=== PATIENT | female | born 2000 | race Caucasian/White ===

== ENCOUNTER 2021-01-17 10:12 | Emergency (ER) | payer OTHER, SELFPAY ==
[2021-01-17 10:21] VITALS: BP 125/75; PULSE 85; RESP 16; TEMP 36; O2SAT 100
--- NOTE | 2021-01-17 10:57 | ED.GENADULT ---
HPI - General Adult General Chief complaint: Upper Respiratory Infection Stated complaint: Sore Throat Source: patient Mode of arrival: ambulatory Limitations: no limitations History of Present Illness HPI narrative: Patient presents for evaluation of sore throat since yesterday. She indicates she sees some white spots in the back of her throat on the left side. She also noted some bilateral cervical lymphadenopathy, right greater than left. 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 No fever, chills, nausea, vomiting. She has some sinus congestion and occasional nonproductive cough. However she has underlying asthma. She is currently using albuterol which is likely . Last use was 3 to 4 days ago. She denies any wheezing, chest pain or shortness of breath. She tried using Chloraseptic spray with some improvement in her symptoms or after. She does vape. No additional complaints or concerns. Related Data Allergies Allergy/AdvReac Type Severity Reaction Status Date / Time No Known Allergies Allergy Unverified 01/17/21 10:45 Review of Systems Review of Systems: Narrative: CONSTITUTIONAL: Denies fever, chills, or sweats. EYES: Denies visual changes, redness, or discharge. ENT: Reports congestion, rhinorrhea, sore throat and bilateral otalgia CARDIOVASCULAR: Denies chest pain, palpitations, or edema. RESPIRATORY: Reports occasional nonproductive cough. Denies dyspnea. GASTROINTESTINAL: Denies abdominal pain, nausea, vomiting, or diarrhea. GENITOURINARY: Denies dysuria or hematuria. SKIN: Denies rash or itching. MUSCULOSKELETAL: Denies back pain, joint pain, or myalgia. NEUROLOGIC: Denies headache, numbness, dizziness, or weakness. PSYCHIATRIC: Denies anxiety or depression. [facility] Past Medical History Medical History (Updated 01/17/21 @ 11:17 by SUHAIL Rivera, GILDARDO) Asthma Surgical History Surgical History No pertinent past surgical history Family History Family History Other Family history unknown Social History Social History Tobacco type: e-cigarettes/vaping Substance use: never Additional living arrangements comments: lives with Gender identity (if verbalized by the patient): Female Sexual Orientation (if Verbalized by the Patient): Lesbian, Greenberg, or Homosexual Exam Narrative: Exam Narrative: GENERAL: Well-appearing, well-nourished, and in no acute distress. HEAD: Normocephalic, atraumatic. EYES: PERRLA and EOMI. ENT: Nares clear, no rhinorrhea or epistaxis. Mucous membranes moist. Oropharynx without tonsillar hypertrophy however there is white exudate noted over posterior pharynx on the left side. Bilateral TMs pearly guerrero nonbulging NECK: Supple. No adenopathy or masses. No carotid bruits or JVD CHEST: Clear to auscultation. No respiratory distress. No wheezes rales or rhonchi HEART: Regular rate and rhythm. No murmur heard. Normal peripheral pulses. ABDOMEN: Soft, nontender, nondistended, normal active bowel sounds. EXTREMITIES: Normal range of motion. No edema. SKIN: Warm, dry, no rash. NEURO: No focal deficits. Alert and oriented x3. PSYCH: Normal mood and affect. Course Course Emergency Course: This is a 20-year-old female who presents with complaints of sore throat and fatigue. Her strep was negative. Her mono was positive. Informed patient on method of transmission and medication she can take for symptom control. Also advised on potential for splenic enlargement and that she should avoid any type of contact sports. Advised follow-up outpatient for further evaluation and treatment return for worsening symptoms. Vital Signs Vital signs: Vital Signs Temperature 36.0 C L 01/17/21 10:21 Pulse Rate 85 01/17/21 10:21 Respiratory Rate 16 01/17/21 10:21 Blood Pressure
== END 2021-01-17 11:21 | disposition home or self-care (01) ==
PROVIDERS: Emergency Provider Nurse Practitioner
DX: B27.90 Infectious mononucleosis, unspecified without complication (principal); J45.909 Unspecified asthma, uncomplicated
CPT/HCPCS: 36416; 86308; 87081; 87880; 99213; G0463

== ENCOUNTER 2021-06-17 17:35 | Emergency (ER) | payer OTHER, SELFPAY ==
[2021-06-17 17:44] VITALS: BP 135/74; PULSE 84; RESP 16; TEMP 36.4; O2SAT 99
--- NOTE | 2021-06-17 18:22 | ED.URI ---
HPI - URI/Sore Throat General Chief Complaint: Upper Respiratory Infection Stated Complaint: SORE THROAT Time Seen by Provider: 06/17/21 18:03 Source: patient and RN notes reviewed Mode of arrival: ambulatory Limitations: no limitations History of Present Illness HPI Narrative: Patient presents today complaining of a 1 week history of sore throat and right lymph node swelling with congestion and mild cough. Denies fever. History of asthma. Patient had COVID-19 in February as well as mononucleosis soon following. Denies current pain in the throat, but does have tenderness when she touches her neck. She has been taking ibuprofen with some mild relief. Patient is also requesting a refill of her albuterol inhaler. MD elicited complaint: sore throat Related Data Allergies Allergy/AdvReac Type Severity Reaction Status Date / Time No Known Allergies Allergy Verified 06/17/21 18:24 Review of Systems Review of Systems: CONSTITUTIONAL: Denies body aches, fever, chills, or sweats. EYES: Denies visual changes, redness, or discharge. ENT: Denies rhinorrhea, or otalgia.+ Sore throat, lymph node swelling, congestion CARDIOVASCULAR: Denies chest pain, palpitations, or edema. RESPIRATORY: Denies dyspnea.+ Cough GASTROINTESTINAL: Denies abdominal pain, nausea, vomiting, or diarrhea. GENITOURINARY: Denies dysuria or hematuria. SKIN: Denies rash, itching, or wounds. MUSCULOSKELETAL: Denies back pain, joint pain, or myalgia. NEUROLOGIC: Denies headache, numbness, tingling, or weakness. PSYCH: Denies depression or anxiety. [facility] Past Medical History Medical History Asthma Surgical History Surgical History No pertinent past surgical history Family History Family History Other Family history unknown Social History Social History Tobacco type: e-cigarettes/vaping Substance use: never Additional living arrangements comments: lives with Gender identity (if verbalized by the patient): Female Sexual Orientation (if Verbalized by the Patient): Lesbian, Greenberg, or Homosexual Comments At time of signature, I have reviewed and agree with nursing past medical, surgical, social and family history unless otherwise noted. Please see nursing chart for further information. There is no relevant family history pertinent to the presenting complaint Exam Narrative: GENERAL: Well-appearing, well-nourished, and in no acute distress. HEAD: Normocephalic, atraumatic. EYES: EOMI. No redness or drainage. Conjunctivae normal. ENT: Mucous membranes pink and moist. Nares clear. No rhinorrhea. TMs normal bilaterally. Throat mildly erythematous. Tonsils 2+ with white exudate. Uvula midline. NECK: Normal AROM. Supple. Bilateral tender and swollen anterior cervical chain lymph nodes, right greater than left. CHEST: No respiratory distress. Clear to auscultation. HEART: Regular rate and rhythm. No murmur appreciated. Normal peripheral pulses. EXTREMITIES: Normal range of motion. No edema. SKIN: Warm, dry, no rash. Capillary refill normal. Normal skin turgor. NEURO: No focal deficits. Alert and oriented x3. Gait steady. PSYCH: Normal affect. No signs of depression or anxiety. Course Vital Signs Vital signs: Vital Signs Temperature 97.5 F L 06/17/21 17:44 Pulse Rate 84 06/17/21 17:44 Respiratory Rate 16 06/17/21 17:44 Blood Pressure 135/74 06/17/21 17:44 Pulse Oximetry 99 06/17/21 17:44 Temperature 97.5 F L 06/17/21 17:44 Pulse Rate 84 06/17/21 17:44 Respiratory Rate 16 06/17/21 17:44 Blood Pressure 135/74 06/17/21 17:44 Pulse Oximetry 99 06/17/21 17:44 Reviewed. Pt has been instructed to follow up with her PCP regarding her elevated blood pressure today
== END 2021-06-17 18:35 | disposition home or self-care (01) ==
PROVIDERS: Emergency Provider Nurse Practitioner
DX: L04.9 Acute lymphadenitis, unspecified (principal); J06.9 Acute upper respiratory infection, unspecified; J02.9 Acute pharyngitis, unspecified; F17.290 Nicotine dependence, other tobacco product, uncomplicated; J45.909 Unspecified asthma, uncomplicated; Z86.16 Personal history of COVID-19
CPT/HCPCS: 87081; 87880; 99213; G0463

== ENCOUNTER 2021-08-06 17:39 | Emergency (ER) | payer OTHER, BC, SELFPAY ==
--- NOTE | ~2021-08-06 | XR_ITS ---
XR humerus LT DATE: 08/06/2021 18:07 INDICATION: Fall. Left humerus distal pain TECHNIQUE: AP and lateral views COMPARISON: None FINDINGS: No fracture, dislocation, periosteal reaction or bone destruction of the left humerus is de tected. Normal alignment at the acromioclavicular, glenohumeral and elbow joints. IMPRESSION: Negative Reviewed, dictated and finalized at location A. [employer] IMPRESSION: Negative
--- NOTE | 2021-08-06 17:47 | ED.FALL ---
HPI - Fall General Chief Complaint: Extremity Injury, Lower Stated Complaint: slip and fall Time Seen by Provider: 08/06/21 17:51 Source: patient and RN notes reviewed Mode of arrival: ambulatory Limitations: no limitations History of Present Illness HPI Narrative: 21-year-old female presents to the [facility] with complaints of left knee and left posterior humeral and elbow pain since slipping and falling on ice yesterday. Patient still having left posterior elbow and posterior humeral pain. States her knee pain is better after applying ice last night. Denies hitting head. No loss of consciousness. No neck pain or back pain. MD complaint: fall Related Data Home Medications Medication Instructions Recorded Confirmed No Home Medications 08/06/21 08/06/21 Allergies Allergy/AdvReac Type Severity Reaction Status Date / Time No Known Allergies Allergy Verified 06/17/21 18:24 Review of Systems Review of Systems: All systems reviewed & are unremarkable except as noted in HPI and below Constitutional: Constitutional: Reports no additional constitutional complaints, Denies chills and Denies fever(s) Eyes: Eyes: Reports no additional eye complaints ENT: Reports system reviewed and no additional complaints, except as documented Cardiovascular: Cardiovascular: Reports no additional cardiovascular complaints and Denies chest pain Respiratory: Respiratory: Reports no additional respiratory complaints, Denies cough and Denies dyspnea Gastrointestinal: Gastrointestinal: Reports no additional gastrointestinal complaints, Denies abdominal pain, Denies nausea and Denies vomiting Musculoskeletal: Musculoskeletal: Reports as per HPI and Reports arthralgias (Left knee last night, posterior left elbow and posterior humerus) Integumentary/Breasts: Skin/Breast: Reports system reviewed and no additional complaints, except as docu Neurologic: Reports system reviewed and no additional complaints, except as documented Psychiatric: Psychiatric: Reports no additional psychiatric complaints Allergic/Immunologic: Allergic/Immunologic: Reports no additional allergic/immunologic complaints [facility] Past Medical History Medical History Asthma Surgical History Surgical History No pertinent past surgical history Family History Family History Other Family history unknown Social History Social History Tobacco type: e-cigarettes/vaping Substance use: never Additional living arrangements comments: lives with Gender identity (if verbalized by the patient): Female Sexual Orientation (if Verbalized by the Patient): Lesbian, Greenberg, or Homosexual Comments At the time of my signature, I reviewed and agree with the nursing past medical, surgical, social, and family history. There is no relevant family history pertinent to the patient complaint. Exam Const: General: healthy appearing, no acute distress and alert Nutritional Appearance: well nourished Orientation/consciousness: patient oriented x3 Limitations: no limitations HENMT: Head: normal to inspection Ears: external ears normal Eyes: Pupils: Equal, round and reactive pupils present Neck: Neck: normal visual inspection, no lymphadenopathy and no meningeal signs Chest: Chest palpation & inspection: normal inspection of the chest Resp: Effort & Inspection: normal respiratory effort and no use of accessory muscles Auscultation: clear to auscultation bilaterally, no crackles, no rales, no rhonchi and no wheezes Cardio: Rate: regular rate Rhythm: regular rhythm GI: GI Palp: Yes Soft to palpation and No Tenderness to palpation present (GI) : General: Yes no CVA tenderness Back/Spine/Pelvis: Back: no CVA tenderness Skin: General skin exam: normal color Rashes: no
[2021-08-06 17:52] VITALS: BP 131/91; PULSE 84; RESP 16; TEMP 36.1; O2SAT 100
== END 2021-08-06 18:29 | disposition home or self-care (01) ==
PROVIDERS: Emergency Provider Nurse Practitioner
DX: M79.622 Pain in left upper arm (principal); M25.562 Pain in left knee; F17.290 Nicotine dependence, other tobacco product, uncomplicated; J45.909 Unspecified asthma, uncomplicated
CPT/HCPCS: 73060; 99213; G0463